=== PATIENT | female | born 1995 ===

== ENCOUNTER 2018-03-06 01:10 | Emergency (ER) | payer SELFPAY ==
[2018-03-06] MEDS ORDERED: MORPHINE IV ONE (01:13)
[2018-03-06 01:28] VITALS: BP 137/99
[2018-03-06 01:49] LABS: Basophils % (Auto) 0.5 % (0.0-1.8); Eosinophils # (Auto) 0.1 K/mm3 (0.0-0.4); Eosinophils % (Auto) 1.2 % (0.0-4.3); Hematocrit 37.5 % (30.3-42.9); Hemoglobin 12.7 gm/dl (10.1-14.3); Lymphocytes % (Auto) 42.4 % (13.4-35.0); Mean Corpuscular HGB Conc 34 % (30-34); Mean Corpuscular Hemoglobin 30 pg (28-32); Mean Corpuscular Volume 88 fl (79-97); Monocytes # (Auto) 0.6 K/mm3 (0.0-0.8); Monocytes % (Auto) 6.5 % (0.0-7.3); Platelet Count 241 K/mm3 (140-440); Red Blood Count 4.28 M/mm3 (3.65-5.03); Red Cell Distribution Width 13.2 % (13.2-15.2)
[2018-03-06 02:05] LABS: Alanine Aminotransferase 13 units/L (7-56); BUN/Creatinine Ratio 14; Blood Urea Nitrogen 7 mg/dL (7-17); Calcium 8.5 mg/dL (8.4-10.2); Hemolysis Index 9
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
== END 2018-03-06 02:03 | disposition left against medical advice (07) ==
LOC: EDBD 01:10 → ED 01:10
DX: S11.80XA Unspecified open wound of other specified part of neck, initial encounter (principal); F17.200 Nicotine dependence, unspecified, uncomplicated; W34.00XA Accidental discharge from unspecified firearms or gun, initial encounter; Y93.02 Activity, running; Y99.8 Other external cause status; Y92.89 Other specified places as the place of occurrence of the external cause
CPT/HCPCS: 36415; 80053; 85025; 96374; 99283; J2270

== ENCOUNTER 2020-01-26 18:11 | Emergency (ER) | payer SELFPAY ==
[2020-01-27] MEDS ORDERED: ACETAMINOPHEN 500 MG TAB PO ONE (00:23)
[2020-01-27] MEDS ORDERED: SODIUM CHLORIDE 0.9% 1000 ML 1,000 ML IV ONE (00:23)
[2020-01-27 01:03] LABS: Basophils % (Auto) 0.2 % (0.0-1.8); Eosinophils % (Auto) 0.6 % (0.0-4.3); Hematocrit 36.2 % (30.3-42.9); Hemoglobin 11.9 gm/dl (10.1-14.3); Lymphocytes # (Auto) 2.2 K/mm3 (1.2-5.4); Lymphocytes % (Auto) 25.4 % (13.4-35.0); Mean Corpuscular HGB Conc 33 % (30-34); Mean Corpuscular Volume 88 fl (79-97); Monocytes # (Auto) 0.5 K/mm3 (0.0-0.8); Monocytes % (Auto) 6.2 % (0.0-7.3); Platelet Count 224 K/mm3 (140-440); Red Blood Count 4.14 M/mm3 (3.65-5.03); Red Cell Distribution Width 13.6 % (13.2-15.2)
[2020-01-27 01:16] LABS: Bacteria,Urine 3+ /HPF (Negative); Bilirubin,Urine NEG (Negative); Blood,Urine NEG (Negative); Color,Urine Yellow (Yellow); Protein,Urine <15 mg/dL mg/dL (Negative); Urobilinogen,Urine < 2.0 mg/dL (<2.0)
[2020-01-27 01:46] LABS: Alanine Aminotransferase 14 units/L (7-56); Albumin 3.5 g/dL (3.9-5); BUN/Creatinine Ratio 18; Blood Urea Nitrogen 7 mg/dL (7-17); Calcium 8.8 mg/dL (8.4-10.2); Hemolysis Index 29
[2020-01-27] MEDS ORDERED: cefTRIAXone/NS 1 GM/50 ML 1 GM/50 ML BAG IV ONE (01:53)
--- NOTE | 2020-01-27 04:22 | Ultrasound Report ---
ULTRASOUND OBSTETRIC INDICATION / CLINICAL INFORMATION: Pelvic pain. Clinical Gestational Age (GA): 10 weeks 1 day TECHNIQUE: Transabdominal. COMPARISON: None available. FINDINGS: GESTATIONAL SAC: Well-defined oval shape and intrauterine in location. YOLK SAC: No significant abnormality. EMBRYO/FETUS: No significant abnormality. - [place]-Rump Length = 3.23 cm = 10 weeks, 1 day(s). - Heart Rate, beats per minute (if present) = 166 bpm ADNEXA: The ovaries are well-visualized and appear unremarkable. No adnexal mass. FREE FLUID: None. ADDITIONAL FINDINGS: None. IMPRESSION: 1. Single, living intrauterine with estimated sonographic age of 10 weeks, 1 day(s). Signer Name: Ingrid Macario MD Signed: 01/27/2020 4:18 AM Workstation Name: [id number]
--- NOTE | 2020-01-27 04:35 | Emergency Department Report ---
ED General Adult HPI - General Chief complaint: Weakness Stated complaint: VOMIT/DIZZY/SCAR/SOB Source: patient Mode of arrival: Ambulatory Limitations: No Limitations - History of Present Illness Initial comments: Patient is a A1 24-year-old white female with no past medical history presents to the ED with complaint of acute onset persistent suprapubic pain, intermittent nausea and vomiting with generalized weakness for the last 1 week, worse in the last 2 days. Patient states that she has not been able to keep anything down because of persistent nausea and vomiting. Patient states that her last menstrual cycle was in October 31, 2019, and that she is unsure wheth er she may be or not. Patient denies dizziness, syncope, chest pain, shortness of breath, vaginal bleeding, vaginal discharge, dysuria, urinary frequency and urgency, diarrhea, change in vision, headache, cough, nasal and sinus congestion, sore throat or palpitations. MD Complaint: abdominal pain; nausea and vomiting; generalized weakness -: Gradual, week(s) (2) Location: abdomen Radiation: non-radiation Severity scale (0 -10): 2 Quality: aching, constant Consistency: constant Improves with: none Worsens with: none Associated Symptoms: denies other symptoms, loss of appetite, malaise, nausea/vomiting, weakness. denies: confusion, chest pain, cough, diaphoresis, fever/chills, headaches, rash, seizure, shortness of breath, syncope Treatments Prior to Arrival: none - Related Data Previous Rx's Medication Instructions Recorded Last Taken Type Acetaminophen [Tylenol] 500 mg PO Q6HR PRN #30 tablet 01/27/20 Unknown Rx Promethazine [Phenergan] 25 mg PO Q6HR PRN #30 tab 01/27/20 Unknown Rx cephALEXin [Keflex] 500 mg PO Q6HR #40 capsule 01/27/20 Unknown Rx Allergies Allergy/AdvReac Type Severity Reaction Status Date / Time No Known Allergies Allergy Unverified 03/06/18 01:13 ED Review of Systems ROS: Stated complaint: VOMIT/DIZZY/SCAR/SOB Other details as noted in HPI Constitutional: denies: chills, fever Eyes: denies: eye pain, eye discharge, vision change ENT: denies: ear pain, throat pain Respiratory: denies: cough, shortness of breath, wheezing Cardiovascular: denies: chest pain, palpitations Endocrine: no symptoms reported Gastrointestinal: abdominal pain, nausea, vomiting. denies: diarrhea Genitourinary: denies: urgency, dysuria, discharge Musculoskeletal: denies: back pain, joint swelling, arthralgia Skin: denies: rash, lesions Neurological: denies: headache, weakness, paresthesias Psychiatric: denies: anxiety, depression Hematological/Lymphatic: denies: easy bleeding, easy bruising ED Past Medical Hx - Past Medical History Previous Medical History?: No - Surgical History Past Surgical History?: Yes Additional Surgical History: - Social History Smoking Status: Never Smoker Substance Use Type: None - Medications Home Medications: Home Medications Medication Instructions Recorded Confirmed Last Taken Type Acetaminophen [Tylenol] 500 mg PO Q6HR PRN #30 tablet 01/27/20 Unknown Rx Promethazine [Phenergan] 25 mg PO Q6HR PRN #30 tab 01/27/20 Unknown Rx cephALEXin [Keflex] 500 mg PO Q6HR #40 capsule 01/27/20 Unknown Rx ED Physical Exam - General Limitations: No Limitations General appearance: alert, in no apparent distress - Head Head exam: Present: atraumatic, normocephalic, normal inspection - Eye Eye exam: Present: normal appearance, PERRL Pupils: Present: normal accommodation - ENT ENT exam: Present: normal exam, normal orophraynx, mucous membranes moist, TM's normal bilaterally, normal external ear exam - Neck Neck exam: Present: normal inspection, full ROM - Respiratory Respiratory exam: Present: normal lung sounds bilaterally. Absent: respiratory distress, wheezes, rales, rhonchi, chest wall tenderness, accessory muscle use, decreased breath sounds, prolonged expiratory - Cardiovascular Cardiovascular Exam: Present: regular rate, normal rhythm, normal heart sounds. Absent: systolic murmur, diastolic murmur, rubs, gallop - GI/Abdominal GI/Abdominal exam: Present: soft, normal bowel sounds. Absent: tenderness, guarding, rebound, hyperactive bowel sounds, hypoactive bowel sounds - Extremities Exam Extremities exam: Present: normal inspection, full ROM, normal capillary refill - Back Exam Back exam: Present: normal inspection, full ROM. Absent: tenderness, CVA tenderness (R), CVA tenderness (L), muscle spasm, vertebral tenderness - Neurological Exam Neurological exam: Present: alert, oriented X3, CN II-XII intact, normal gait, reflexes normal - Psychiatric Psychiatric exam: Present: normal affect, normal mood - Skin Skin exam: Present: warm, dry, intact, normal color. Absent: rash ED Course Vital Signs 01/26/20 01/26/20 18:21 23:46 Temperature 97.7 F 98.0 F Pulse Rate 89 67 Respiratory 18 15 Rate Blood Pressure 113/65 122/67 O2 Sat by Pulse 99 100 Oximetry ED Medical Decision Making - Lab Data Result diagrams: 01/27/20 00:42 01/27/20 00:42 - Radiology Data Radiology results: report reviewed, image reviewed Findings [facility] [address] [place] [address] Ultrasound Report Signed Patient: RANJANA RENE MR#: [id number] : 1995 Acct:[id number] Age/Sex: 24 / F ADM Date: 01/26/20 Loc: ED Attending Dr: Ordering Physician: RAUL GODFREY Date of Service: 01/27/20 Procedure(s): US OB <= 14 weeks fetus Accession Number(s): [id number] cc: RAUL GODFREY ULTRASOUND OBSTETRIC INDICATION / CLINICAL INFORMATION: Pelvic pain. Clinical Gestational Age (GA): 10 weeks 1 day TECHNIQUE: Transabdominal. COMPARISON: None available. FINDINGS: GESTATIONAL SAC: Well-defined oval shape and intrauterine in location. YOLK SAC: No significant abnormality. EMBRYO/FETUS: No significant abnormality. - [place]-Rump Length = 3.23 cm = 10 weeks, 1 day(s). - Heart Rate, beats per minute (if present) = 166 bpm ADNEXA: The ovaries are well-visualized and appear unremarkable. No adnexal mass. FREE FLUID: None. ADDITIONAL FINDINGS: None. IMPRESSION: 1. Single, living intrauterine with estimated sonographic age of 10 weeks, 1 day(s). Signer Name: Ingrid Macario MD Signed: 01/27/2020 4:18 AM Workstation Name: [id number] Transcribed By: Dictated By: Ingrid Macario MD Electronically Authenticated By: Ingrid Macario MD Signed Date/Time: 01/27/208 DD/ 5 TD/TT: - Medical Decision Making This is a A1 24-year-old female whose LMP was October 31, and who presented to the ED with diffuse low abdominal pain, nausea and vomiting. In the ED, patient is alert and oriented x3 and is not in any distress. Lab test results were reviewed and are unremarkable except for hCG quant of [id number], and urinalysis that showed significant urinary tract infection. Patient was treated for pain and also received antiemetics and Rocephin 1 g IV x1. Patient also received normal saline 1 L IV bolus x1. Transvaginal ultrasound shows a single IUP of approximately 10 weeks 1 day gestation, and with heart rate of 166 bpm and no other abnormal findings. On reevaluation, patient's pain is better and is well controlled with medications. Patient was discharged home on pain medications and antiemetics as well as antibiotics and advised to maintain a com plete pelvic rest, take medications for pain as needed and follow-up with the [facility] physician in 5 to 7 days for reevaluation. Patient was advised to return to the ED immediately if symptoms get worse. - Differential Diagnosis Ectopic ; UTI; PID; Colitis; Ovarian cysts; Fibroids Critical care attestation.: If time is entered above; I have spent that time in minutes in the direct care of this critically ill patient, excluding procedure time. ED Disposition Clinical Impression: Abdominal pain during in first trimester, Acute urinary tract infection, Vomiting during Disposition: DC-01 TO HOME OR SELFCARE Is pt being admited?: No Does the pt Need Aspirin: No Condition: Stable Instructions: Urinary Tract Infection in Women (ED), Abdominal Pain in (ED), Acute Nausea and Vomiting (ED) Additional Instructions: Maintain a complete pelvic rest, with no strenuous physical activities, sexual intercourse or heavy lifting, and take medications as advised for pain and for nausea and vomiting or and also oral antibiotics for UTI. Follow-up with the [facility] physician in 5 to 7 days for reevaluation or return to the ED immediately if symptoms get worse. Prescriptions: Acetaminophen [Tylenol] 500 mg PO Q6HR PRN #30 tablet PRN Reason: Pain , Severe (7-10) cephALEXin [Keflex] 500 mg PO Q6HR #40 capsule Promethazine [Phenergan] 25 mg PO Q6HR PRN #30 tab PRN Reason: Nausea Referrals: PATEL LINK MD [Staff Physician] - 7-10 days Time of Disposition: 04:43 Print Language: CZECH
[2020-01-27 04:56] VITALS: BP 119/68
== END 2020-01-27 04:56 | disposition home or self-care (01) ==
LOC: ED 18:11
DX: O23.31 Infections of other parts of urinary tract in pregnancy, first trimester (principal); N39.0 Urinary tract infection, site not specified; O26.891 Other specified pregnancy related conditions, first trimester; Z3A.10 10 weeks gestation of pregnancy
CPT/HCPCS: 36415; 76801; 80053; 81001; 83690; 84702; 85025; 96365; 99284; J0696; J7030